=== PATIENT | male | born 1990 | race Caucasian/White ===

== ENCOUNTER 2021-02-04 04:15 | Emergency (ER) | payer MEDICAID ==
[~2021-02-04] VITALS: Ht 165.1 cm; Wt 79.4 kg
[2021-02-04 04:25] VITALS: BP_SYST 141
--- NOTE | 2021-02-04 04:31 | NUR ---
Patient triaged and placed in waiting room. VSS and patient appears in no acute distress at this time. Accompanied by SELF, awaiting available bed, and MD notified of need for MSE.
--- NOTE | 2021-02-04 05:35 | NUR ---
Patient to ER bed 6 to gown for evaluation. Side rails up.
[2021-02-04 05:36] LABS: BASOPHILS % (AUTO) 0.5 % (0.0-2.0); EOSINOPHILS # (AUTO) 0.2 K/uL (0.0-0.4); EOSINOPHILS % (AUTO) 2.1 % (0.0-4.0); HEMATOCRIT 44.7 % (36-54); HEMOGLOBIN 15.2 g/dL (14.0-18.0); LYMPHOCYTES # (AUTO) 2.3 K/uL (1.0-5.5); LYMPHOCYTES % (AUTO) 29.7 % (20.5-51.5); MEAN CORPUSCULAR HEMOGLOBIN 31 pg (27-31); MEAN CORPUSCULAR HGB CONC 34 % (32-36); MEAN CORPUSCULAR VOLUME 91 fL (79.0-98.0); MONOCYTES # (AUTO) 0.5 K/uL (0.0-1.0); MONOCYTES % (AUTO) 6.7 % (1.7-9.3); NEUTROPHILS # (AUTO) 4.7 K/uL (1.8-7.7); PLATELET COUNT (AUTO) 136 K/uL (130-430); RED BLOOD CELL COUNT(AUTO) 4.92 MIL/uL (4.2-6.2); RED CELL DISTRIBUTION WIDTH 13.7 % (9.0-15.0); WHITE BLOOD COUNT (AUTO) 7.7 K/uL (4.8-10.8)
--- NOTE | 2021-02-04 05:37 | NUR ---
PT BIB FAMILY TO ED WALKED IN C/O VOMITING BLOOD X1 HOUR AGO, + 1 EPISODE YEST. PT REPORTS PAWEL BLOOD COMING UP. DENIES ANY RECENT FORCEFUL VOMITING OR COUGHING
[2021-02-04 05:52] LABS: CALCIUM 8.8 mg/dL (8.4-11.0); CREATININE 1.13 mg/dL (0.55-1.30); POTASSIUM 4.3 mmol/L (3.5-5.1)
[2021-02-04 05:57] LABS: ALBUMIN 3.9 g/dL (3.4-4.8); TOTAL BILIRUBIN 0.3 mg/dL (0.0-1.0)
--- NOTE | 2021-02-04 06:48 | NUR ---
Dr. Nunez bedside for pt followup and update
--- NOTE | 2021-02-04 06:55 | NUR ---
Patient given written and verbal discharge instructions and verbalizes understanding. ER MD discussed with patient the results and treatment provided. Patient in stable condition. ID arm band removed. Patient educated on pain management and to follow up with PMD. Pain Scale 0/10 Opportunity for questions provided and answered.
[2021-02-04 06:56] VITALS: BP_SYST 138
== END 2021-02-04 06:56 | disposition home or self-care (01) ==
LOC: SED 04:15
DX: R04.2 Hemoptysis (principal)
CPT/HCPCS: 36415; 71045; 80053; 85025; 99284

== ENCOUNTER 2023-03-09 19:50 | Emergency (ER) | payer MEDICAID ==
[~2023-03-09] VITALS: Ht 165.1 cm; Wt 77.1 kg
[2023-03-09 20:30] VITALS: BP_SYST 135; PULSE 80; RESP 18; TEMP 97.5; O2SAT 98
[2023-03-09] MEDS ORDERED: DICL20GE TP (23:01)
[2023-03-09] MEDS ORDERED: ACET325T53 PO (23:01)
[2023-03-09 23:10] VITALS: BP_SYST 130; PULSE 76; RESP 18; TEMP 97.5; O2SAT 99
== END 2023-03-09 23:10 | disposition home or self-care (01) ==
LOC: SED 19:50
DX: S43.401A Unspecified sprain of right shoulder joint, initial encounter (principal); S40.011A Contusion of right shoulder, initial encounter; Z79.899 Other long term (current) drug therapy; V18.0XXA Pedal cycle driver injured in noncollision transport accident in nontraffic accident, initial encounter; Y93.89 Activity, other specified; Y92.89 Other specified places as the place of occurrence of the external cause; Y99.8 Other external cause status
CPT/HCPCS: 73030; 99283

== ENCOUNTER 2023-04-06 22:53 | Emergency (ER) | payer OTHER, MEDICAID ==
[~2023-04-06] VITALS: Ht 165.1 cm; Wt 79.4 kg
[~2023-04-06 22:53] MED LIST: ACET325T53 PO; DICL20GE TP
[2023-04-06 23:07] VITALS: BP_SYST 162; PULSE 77; RESP 18; TEMP 97.3; O2SAT 98
[2023-04-06] MEDS ORDERED: IBUPROFEN 400 MG TABLET PO ONE (23:15)
[2023-04-07] MEDS ORDERED: NAPR-1172 PO (00:52)
[2023-04-07 00:57] VITALS: BP_SYST 140; PULSE 66; RESP 16; TEMP 98; O2SAT 97
== END 2023-04-07 00:57 | disposition home or self-care (01) ==
LOC: SED 22:53
DX: S00.03XA Contusion of scalp, initial encounter (principal); J45.909 Unspecified asthma, uncomplicated; Z79.899 Other long term (current) drug therapy; V23.49XA Other motorcycle driver injured in collision with car, pick-up truck or van in traffic accident, initial encounter; Y93.89 Activity, other specified; Y92.89 Other specified places as the place of occurrence of the external cause; Y99.8 Other external cause status
CPT/HCPCS: 70450-TC; 72125-TC; 76376; 99284